=== PATIENT | female | born 1955 | race Caucasian/White ===

== ENCOUNTER 2019-07-05 10:07 | Outpatient (CLI) | payer MEDICARE, SELFPAY ==
[2019-07-05 10:33] LABS: Basophils # 0.1 10^3/uL (0.0-0.1); Basophils % 0.6 %; Eosinophils # 0.6 10^3/uL (0.0-0.8); Hematocrit 48.8 % (37.0-47.0); Hemoglobin 14.8 g/dL (11.5-15.3); Lymphocytes % 12.4 %; Mean Corpuscular HGB Conc 30.3 g/dL (30.0-36.0); Mean Corpuscular Hemoglobin 28.6 pg (28.0-34.0); Mean Corpuscular Volume 94.4 fL (81-99); Mean Platelet Volume 9.8 fL (7.4-10.4); Monocytes # 0.7 10^3/uL (0.2-0.9); Neutrophils % 71.8 %; Nucleated Red Blood Cells % 0 %; Platelet Count 221 10^3/cmm (130-400); Red Blood Count 5.17 10^6/uL (4.1-5.3); Red Cell Distribution Width 14.4 % (12.1-15.1); White Blood Count 8.4 10^3/uL (4.0-10.0)
[2019-07-05 10:46] LABS: Alanine Aminotransferase 17 U/L (0-33); Albumin Level 4.3 g/dL (3.5-5.2); Alkaline Phosphatase 102 IU/L (35-105); Anion Gap 16.5 (5-19); Aspartate Amino Transferase 17 U/L (0-32); Blood Urea Nitrogen 16 mg/dL (8-23); Calcium 10.7 mg/dL (8.5-10.5); Carbon Dioxide 32 mmol/L (22-29); Chloride 99 mmol/L (98-107); Globulin 2.8 g/dL (1.3-4.6); Glucose 122 mg/dL (65-115); Osmolality Calculated 294 mOsm/kg (285-295); Potassium 4.5 mmol/L (3.5-5.1); Sodium 143 mmol/L (136-145); Total Bilirubin 0.3 mg/dL (0.15-1.2); Total Protein 7.1 g/dL (6.6-8.7)
== END 2019-07-05 10:08 | disposition home or self-care (01) ==
LOC: LAB 10:13
PROVIDERS: PCP Internal Medicine; Visit Provider Specialist
DX: C34.11 Malignant neoplasm of upper lobe, right bronchus or lung (principal)
CPT/HCPCS: 80053; 85025

== ENCOUNTER 2019-07-26 12:58 | Outpatient (CLI) | payer MEDICARE, SELFPAY ==
[2019-07-26 13:43] LABS: Hematocrit 45.5 % (37.0-47.0); Hemoglobin 13.9 g/dL (11.5-15.3); Mean Corpuscular HGB Conc 30.5 g/dL (30.0-36.0); Mean Corpuscular Hemoglobin 29.2 pg (28.0-34.0); Mean Corpuscular Volume 95.6 fL (81-99); Mean Platelet Volume 10.2 fL (7.4-10.4); Platelet Count 201 10^3/cmm (130-400); Red Blood Count 4.76 10^6/uL (4.1-5.3); Red Cell Distribution Width 14.2 % (12.1-15.1); White Blood Count 6.9 10^3/uL (4.0-10.0)
[2019-07-26 13:55] LABS: Alanine Aminotransferase 14 U/L (0-33); Albumin Level 4.1 g/dL (3.5-5.2); Alkaline Phosphatase 97 IU/L (35-105); Anion Gap 14.9 (5-19); Aspartate Amino Transferase 14 U/L (0-32); Blood Urea Nitrogen 12 mg/dL (8-23); Calcium 10.6 mg/dL (8.5-10.5); Carbon Dioxide 33 mmol/L (22-29); Chloride 98 mmol/L (98-107); Globulin 2.8 g/dL (1.3-4.6); Glomerular Filtration Rate 123.8 mL/min (90-130); Glucose 129 mg/dL (65-115); Osmolality Calculated 292 mOsm/kg (285-295); Potassium 3.9 mmol/L (3.5-5.1); Sodium 142 mmol/L (136-145); Total Bilirubin 0.3 mg/dL (0.15-1.2); Total Protein 6.9 g/dL (6.6-8.7)
[2019-07-26 14:51] LABS: Absolute Neutrophil 3.7 10^3/cmm (1.4-6.5); Absolute Segmented Neutrophil 3.7 10/cmm (1.6-7.1); Eosinophils 1 %; Lymphocytes 15 %; Monocytes Absolute 0.3 10^3/cmm (0.1-0.6); Platelet Estimate Normal (Normal); Segmented Neutrophils 54 %; Total Cells Counted 100 (0-100)
== END 2019-07-26 12:59 | disposition home or self-care (01) ==
LOC: LAB 13:01
PROVIDERS: PCP Family Medicine; Visit Provider Orthopaedic Surgery
DX: C34.11 Malignant neoplasm of upper lobe, right bronchus or lung (principal)
CPT/HCPCS: 36415; 80053; 85007; 85027

== ENCOUNTER 2019-09-10 13:29 | Outpatient (CLI) | payer MEDICARE, SELFPAY ==
[2019-09-10 14:13] LABS: Hemoglobin 14.1 g/dL (11.5-15.3); Mean Corpuscular Hemoglobin 28.5 pg (28.0-34.0); Mean Corpuscular Volume 95.1 fL (81-99); Mean Platelet Volume 10.3 fL (7.4-10.4); Platelet Count 219 10^3/cmm (130-400); Red Blood Count 4.94 10^6/uL (4.1-5.3); Red Cell Distribution Width 13.9 % (12.1-15.1); White Blood Count 12.4 10^3/uL (4.0-10.0)
[2019-09-10 15:11] LABS: Alanine Aminotransferase 28 U/L (0-33); Albumin Level 4.4 g/dL (3.5-5.2); Alkaline Phosphatase 95 IU/L (35-105); Anion Gap 13.4 (5-19); Aspartate Amino Transferase 18 U/L (0-32); Blood Urea Nitrogen 22 mg/dL (8-23); Carbon Dioxide 32 mmol/L (22-29); Chloride 100 mmol/L (98-107); Globulin 2.3 g/dL (1.3-4.6); Glucose 130 mg/dL (65-115); Osmolality Calculated 290 mOsm/kg (285-295); Potassium 4.4 mmol/L (3.5-5.1); Sodium 141 mmol/L (136-145); Total Bilirubin 0.2 mg/dL (0.15-1.2); Total Protein 6.7 g/dL (6.6-8.7)
[2019-09-10 17:03] LABS: Absolute Segmented Neutrophil 11.3 10/cmm (1.6-7.1); Lymphocytes 8 %; Monocytes Absolute 0.1 10^3/cmm (0.1-0.6); Platelet Estimate Normal (Normal); Segmented Neutrophils 91 %; Total Cells Counted 100 (0-100)
== END 2019-09-10 13:30 | disposition home or self-care (01) ==
LOC: LAB 13:34
PROVIDERS: PCP Family Medicine; Visit Provider Specialist
DX: C34.11 Malignant neoplasm of upper lobe, right bronchus or lung (principal)
CPT/HCPCS: 36415; 80053; 85007; 85027

== ENCOUNTER 2019-10-01 14:21 | Outpatient (CLI) | payer MEDICARE, SELFPAY ==
[2019-10-01 15:11] LABS: Hematocrit 44.4 % (37.0-47.0); Hemoglobin 13.2 g/dL (11.5-15.3); Mean Corpuscular HGB Conc 29.7 g/dL (30.0-36.0); Mean Corpuscular Hemoglobin 28.5 pg (28.0-34.0); Mean Corpuscular Volume 95.9 fL (81-99); Mean Platelet Volume 10.8 fL (7.4-10.4); Platelet Count 195 10^3/cmm (130-400); Red Blood Count 4.63 10^6/uL (4.1-5.3); Red Cell Distribution Width 13.9 % (12.1-15.1); White Blood Count 8.3 10^3/uL (4.0-10.0)
[2019-10-01 15:26] LABS: Alanine Aminotransferase 35 U/L (0-33); Albumin Level 3.9 g/dL (3.5-5.2); Alkaline Phosphatase 81 IU/L (35-105); Anion Gap 13.1 (5-19); Aspartate Amino Transferase 14 U/L (0-32); Blood Urea Nitrogen 19 mg/dL (8-23); Carbon Dioxide 29 mmol/L (22-29); Chloride 101 mmol/L (98-107); Globulin 2.8 g/dL (1.3-4.6); Glomerular Filtration Rate 100.3 mL/min (90-130); Glucose 141 mg/dL (65-115); Osmolality Calculated 287 mOsm/kg (285-295); Potassium 4.1 mmol/L (3.5-5.1); Sodium 139 mmol/L (136-145); Total Bilirubin 0.2 mg/dL (0.15-1.2); Total Protein 6.7 g/dL (6.6-8.7)
[2019-10-01 16:00] LABS: Absolute Neutrophil 8.1 10^3/cmm (1.4-6.5); Absolute Segmented Neutrophil 8.1 10/cmm (1.6-7.1); Giant Platelets Trace; Lymphocytes 1 %; Lymphocytes Absolute 0.2 10^3/cmm (1.2-3.4); Platelet Estimate Normal (Normal); Segmented Neutrophils 98 %; Total Cells Counted 100 (0-100)
== END 2019-10-01 14:22 | disposition home or self-care (01) ==
LOC: LAB 14:26
PROVIDERS: PCP Family Medicine; Visit Provider Specialist
DX: C34.11 Malignant neoplasm of upper lobe, right bronchus or lung (principal)
CPT/HCPCS: 36415; 80053; 85007; 85027

== ENCOUNTER 2019-10-23 11:56 | Outpatient (CLI) | payer MEDICARE, SELFPAY ==
[2019-10-23 12:42] LABS: Hematocrit 46.3 % (37.0-47.0); Hemoglobin 14.1 g/dL (11.5-15.3); Mean Corpuscular HGB Conc 30.5 g/dL (30.0-36.0); Mean Corpuscular Hemoglobin 28.9 pg (28.0-34.0); Mean Corpuscular Volume 94.9 fL (81-99); Mean Platelet Volume 10.6 fL (7.4-10.4); Platelet Count 184 10^3/cmm (130-400); Red Blood Count 4.88 10^6/uL (4.1-5.3); Red Cell Distribution Width 13.8 % (12.1-15.1); White Blood Count 7.1 10^3/uL (4.0-10.0)
[2019-10-23 13:02] LABS: Alanine Aminotransferase 11 U/L (0-33); Albumin Level 4.2 g/dL (3.5-5.2); Alkaline Phosphatase 82 IU/L (35-105); Anion Gap 15.6 (5-19); Aspartate Amino Transferase 15 U/L (0-32); Blood Urea Nitrogen 11 mg/dL (8-23); Calcium 9.5 mg/dL (8.5-10.5); Carbon Dioxide 30 mmol/L (22-29); Chloride 100 mmol/L (98-107); Globulin 2.7 g/dL (1.3-4.6); Glomerular Filtration Rate 123.8 mL/min (90-130); Glucose 108 mg/dL (65-115); Osmolality Calculated 289 mOsm/kg (285-295); Potassium 4.6 mmol/L (3.5-5.1); Sodium 141 mmol/L (136-145); Total Bilirubin 0.3 mg/dL (0.15-1.2); Total Protein 6.9 g/dL (6.6-8.7)
[2019-10-23 14:15] LABS: Absolute Segmented Neutrophil 4.9 10/cmm (1.6-7.1); Basophils Absolute 0.1 10^3/cmm (0.0-0.2); Eosinophils 15 %; Lymphocytes 10 %; Monocytes Absolute 0.3 10^3/cmm (0.1-0.6); Platelet Estimate Normal (Normal); Segmented Neutrophils 69 %; Total Cells Counted 100 (0-100)
== END 2019-10-23 11:57 | disposition home or self-care (01) ==
LOC: LAB 11:59
PROVIDERS: PCP Family Medicine; Visit Provider Orthopaedic Surgery
DX: C34.11 Malignant neoplasm of upper lobe, right bronchus or lung (principal)
CPT/HCPCS: 36415; 80053; 85007; 85027

== ENCOUNTER 2019-11-12 13:14 | Outpatient (CLI) | payer MEDICARE, SELFPAY ==
[2019-11-12 13:50] LABS: Hematocrit 46.7 % (37.0-47.0); Hemoglobin 13.9 g/dL (11.5-15.3); Mean Corpuscular HGB Conc 29.8 g/dL (30.0-36.0); Mean Corpuscular Hemoglobin 28.4 pg (28.0-34.0); Mean Corpuscular Volume 95.3 fL (81-99); Platelet Count 181 10^3/cmm (130-400); Red Cell Distribution Width 14.4 % (12.1-15.1)
[2019-11-12 14:11] LABS: Alanine Aminotransferase 11 U/L (0-33); Albumin Level 3.7 g/dL (3.5-5.2); Alkaline Phosphatase 92 IU/L (35-105); Aspartate Amino Transferase 13 U/L (0-32); Blood Urea Nitrogen 14 mg/dL (8-23); Calcium 9.7 mg/dL (8.5-10.5); Carbon Dioxide 32 mmol/L (22-29); Chloride 100 mmol/L (98-107); Globulin 2.6 g/dL (1.3-4.6); Glomerular Filtration Rate 100.3 mL/min (90-130); Glucose 174 mg/dL (65-115); Osmolality Calculated 297 mOsm/kg (285-295); Sodium 141 mmol/L (136-145); Total Bilirubin 0.2 mg/dL (0.15-1.2); Total Protein 6.3 g/dL (6.6-8.7)
[2019-11-12 14:13] LABS: Anion Gap 13.5 (5-19); Potassium 4.5 mmol/L (3.5-5.1)
[2019-11-12 14:20] LABS: Absolute Eosinophils 0.3 10^3/cmm (0.0-0.7); Absolute Segmented Neutrophil 6.3 10/cmm (1.6-7.1); Eosinophils 4 %; Lymphocytes 5 %; Lymphocytes Absolute 0.6 10^3/cmm (1.2-3.4); Monocytes Absolute 0.8 10^3/cmm (0.1-0.6); Platelet Estimate Normal (Normal); Segmented Neutrophils 79 %; Total Cells Counted 100 (0-100)
== END 2019-11-12 13:15 | disposition home or self-care (01) ==
LOC: LAB 13:16
PROVIDERS: PCP Family Medicine; Visit Provider Orthopaedic Surgery
DX: C34.11 Malignant neoplasm of upper lobe, right bronchus or lung (principal)
CPT/HCPCS: 80053; 85007; 85027

== ENCOUNTER 2019-12-03 13:10 | Outpatient (CLI) | payer MEDICARE, SELFPAY ==
[2019-12-03 13:34] LABS: Basophils % 0.6 %; Eosinophils # 0.4 10^3/uL (0.0-0.8); Hematocrit 47.8 % (37.0-47.0); Hemoglobin 14.4 g/dL (11.5-15.3); Lymphocytes % 15.2 %; Mean Corpuscular HGB Conc 30.1 g/dL (30.0-36.0); Mean Corpuscular Hemoglobin 28.1 pg (28.0-34.0); Mean Corpuscular Volume 93.4 fL (81-99); Monocytes # 0.5 10^3/uL (0.2-0.9); Monocytes % 8.2 %; Neutrophils # 4.34 10^3/uL (1.8-7.7); Neutrophils % 68.8 %; Nucleated Red Blood Cells % 0 %; Platelet Count 223 10^3/cmm (130-400); Red Blood Count 5.12 10^6/uL (4.1-5.3); Red Cell Distribution Width 13.7 % (12.1-15.1); White Blood Count 6.3 10^3/uL (4.0-10.0)
== END 2019-12-03 13:11 | disposition home or self-care (01) ==
LOC: LAB 13:14
PROVIDERS: PCP Family Medicine; Visit Provider Orthopaedic Surgery
DX: C34.11 Malignant neoplasm of upper lobe, right bronchus or lung (principal)
CPT/HCPCS: 36415; 85025